=== PATIENT | female | born 1980 | race African-American/Black ===

== ENCOUNTER 2018-04-23 16:01 | Emergency (ER) | payer MEDICAID ==
[~2018-04-23] VITALS: Ht 236.2 cm; Wt 67.0 kg
[2018-04-23 17:55] LABS: BASOPHILS % 0.9 % (0.0-2.0); EOSINOPHILS % 2.5 % (0.0-5.0); HEMATOCRIT. 40.6 % (36.0-48.0); HEMOGLOBIN. 13.1 g/dL (12.0-16.0); LYMPHOCYTES % 38.4 % (20.0-50.0); MEAN CORPUSCULAR HEMOGLOBIN 26.7 pg (28.0-32.0); MEAN CORPUSCULAR VOLUME 82.8 fL (81.0-99.0); MONOCYTES % 12.8 % (2.0-8.0); NEUTROPHILS % 45.4 % (40.0-76.0); PLATELET 202 x1000/uL (130-400); RED CELL DISTRIBUTION WIDTH 13.9 % (11.6-14.6)
[2018-04-23 17:59] LABS: CHLORIDE 108 mEq/L (98-107)
[2018-04-23 18:01] LABS: PROTHROMBIN TIME 10.1 sec (9.1-11.1)
[2018-04-23 18:02] LABS: CLARITY URINE CLEAR (CLEAR); COLOR URINE YELLOW (YELLOW); KETONES URINE NEGATIVE (NEGATIVE); LEUKOCYTE ESTERASE URINE NEGATIVE (NEGATIVE); NITRITE URINE NEGATIVE (NEGATIVE); OCCULT BLOOD URINE NEGATIVE (NEGATIVE); PROTEIN URINE NEGATIVE (NEGATIVE); SPECIFIC GRAVITY URINE 1.021 (1.005-1.030); UROBILINOGEN URINE 0.2 E.U./dL (0.2-1.0)
[2018-04-23 19:45] VITALS: BP 156/92
== END 2018-04-23 19:50 | disposition home or self-care (01) ==
LOC: ER 16:01
DX: K62.5 Hemorrhage of anus and rectum (principal); M25.562 Pain in left knee; R03.0 Elevated blood-pressure reading, without diagnosis of hypertension
CPT/HCPCS: 36415; 73562; 80053; 81003; 81025; 85025; 85610; 99285